=== PATIENT | female | born 1935 | race Caucasian/White ===

== ENCOUNTER → 2017-05-26 | Outpatient (CLI) | payer MEDICARE ==
[~2017-05-26] MED LIST: ACET325T14 PO; ALBU18HF INH; AMLO5TAB2 PO; DOCU-30 PO; HEPA500024 SQ; INSU100C5 SQ-INSULIN; INSU100V13 SQ; LANS1COM PO; LISI-167 PO; MAGN400T7 PO; METF500T27 PO; METO25TA35 PO; OMEP10CA2 PO; OXYC-302 PO; PANT40TA5 PO; POTA10TA11 PO; PRAV10TA2 PO; PRAV20TA2 PO; PRED10TA PO; SPIR25TA3 PO
== END | disposition home or self-care (01) ==
LOC: CVU 12:16
PROVIDERS: ATTEND Surgery
DX: I65.23 Occlusion and stenosis of bilateral carotid arteries (principal); I25.10 Atherosclerotic heart disease of native coronary artery without angina pectoris; I10 Essential (primary) hypertension; E11.9 Type 2 diabetes mellitus without complications; I48.91 Unspecified atrial fibrillation; I77.1 Stricture of artery; F17.200 Nicotine dependence, unspecified, uncomplicated; E78.5 Hyperlipidemia, unspecified; Z79.4 Long term (current) use of insulin
CPT/HCPCS: 93880; 93922; 93925

== ENCOUNTER 2017-09-25 12:58 | Emergency (ER) | payer MEDICARE, MEDICAID ==
[~2017-09-25] VITALS: Ht 157.5 cm; Wt 51.8 kg
[~2017-09-25 12:58] MED LIST changes: +DOCU-131 PO; -DOCU-30 PO; -LANS1COM PO; +LANS1COM3 PO
[2017-09-25 14:26] LABS: BASOPHILS # (AUTO) 0.01 x10^3/uL (0-0.1); BASOPHILS % (AUTO) 0 % (0-1); EOSINOPHILS # (AUTO) 0.11 x10^3/uL (0-0.4); EOSINOPHILS % (AUTO) 2 % (1-7); LYMPHOCYTES # (AUTO) 1.15 x10^3/uL (1-3.4); LYMPHOCYTES % (AUTO) 15 % (22-44); MD NO; MEAN CORPUSCULAR HEMOGLOBIN 29.1 pg (27.0-34.8); MEAN CORPUSCULAR HGB CONC 32.9 g/dL (32.4-35.8); MEAN CORPUSCULAR VOLUME 88.7 fL (80-100); MEAN PLATELET VOLUME 8.5 fL (7.4-10.4); MONOCYTES # (AUTO) 0.43 x10^3/uL (0.2-0.8); MONOCYTES % (AUTO) 6 % (2-9); NEUTROPHILS # (AUTO) 5.91 x10^3/uL (1.8-6.8); NEUTROPHILS % (AUTO) 78 % (42-75); PLATELET COUNT 177 x10^3/uL (130-400); RED BLOOD COUNT 4.31 x10^6/uL (3.82-5.3); RED CELL DISTRIBUTION WIDTH 17.9 % (9.6-15.2)
[2017-09-25 14:28] LABS: INTERNATIONAL NORMALIZED RATIO 1.28 (0.93-1.1); PROTHROMBIN TIME 13.2 Seconds (9.6-11.5)
[2017-09-25 14:34] LABS: ALANINE AMINOTRANSFERASE 20 U/L (12-78); ALBUMIN 3.1 g/dL (3.4-5.0); ANION GAP 10 mmol/L (5-15); CALCIUM 9.1 mg/dL (8.5-10.1); CHLORIDE 105 mmol/L (98-107); CREATININE 2.49 mg/dL (0.55-1.02)
[2017-09-25 14:36] LABS: ALKALINE PHOSPHATASE 139 U/L (45-117); BILIRUBIN,TOTAL 0.3 mg/dL (0.2-1.0); TOTAL PROTEIN 7.3 g/dL (6.4-8.2)
[2017-09-25] MEDS ORDERED: INSU100V13 SQ-INSULIN (15:32)
[2017-09-25 15:47] LABS: CULTURE INDICATED? YES; MICROSCOPIC INDICATED
[2017-09-25 16:35] VITALS: BP 183/88
[2017-12-19] MEDS ORDERED: APIX5TAB PO (13:36)
[2017-12-19] MEDS ORDERED: LINA5TAB PO (13:36)
== END 2017-09-25 16:38 | disposition home or self-care (01) ==
LOC: ED 16:32
DX: G45.9 Transient cerebral ischemic attack, unspecified (principal); N30.00 Acute cystitis without hematuria; J44.9 Chronic obstructive pulmonary disease, unspecified; I11.0 Hypertensive heart disease with heart failure; I50.9 Heart failure, unspecified; E11.9 Type 2 diabetes mellitus without complications; Z90.710 Acquired absence of both cervix and uterus
CPT/HCPCS: 36415; 70551; 80053; 81001; 85025; 85610; 85730; 87077; 87086; 87186; 93005; 99285

== ENCOUNTER 2017-10-13 13:23 | Inpatient (IN) | payer MEDICARE, MEDICAID ==
[~2017-10-13] VITALS: Ht 152.4 cm; Wt 50.7 kg
[~2017-10-13 13:23] MED LIST changes: +INSU100V13 SQ-INSULIN
[2017-10-13 14:33] LABS: HEMATOCRIT 35.9 % (34.6-47.8); HEMOGLOBIN 11.9 g/dL (11.7-16.4); WHITE BLOOD COUNT 6.6 x10^3/uL (3.4-10)
[2017-10-13 14:40] LABS: ASPARTATE AMINO TRANSFERASE 12 U/L (15-37); BLOOD UREA NITROGEN 28 mg/dL (7-18)
[2017-10-13 15:13] LABS: PATH.CAST-FLAG NOT PRESENT; SPERM-FLAG NOT PRESENT; SRC-FLAG NOT PRESENT; XTAL-FLAG NOT PRESENT; YLC-FLAG NOT PRESENT
[2017-10-13] MEDS ORDERED: SODIUM CHLORIDE 0.9% 1,000ML IVBOLUS ONE (15:30)
[2017-10-13] MEDS ORDERED: ASPIRIN 81 MG TABLET CHEW PO ONE (16:00)
[2017-10-13] MEDS ORDERED: ENALAPRILAT 1.25 MG/ML, 2ML IV ONE (16:00)
[2017-10-13] MEDS ORDERED: ASPIRIN 81 MG TABLET CHEW ONE (16:26)
[2017-10-13] MEDS ORDERED: ENALAPRILAT 1.25 MG/ML, 2ML ONE (16:26)
[2017-10-13] MEDS: SODIUM CHLORIDE 0.9% 1,000 ML IV SCH (16:58)
[2017-10-13] MEDS ORDERED: LABETALOL 5MG/ML, 20ML IVPush PRN (18:00)
[2017-10-13] MEDS ORDERED: GLUCAGON 1 MG IM PRN (18:00)
[2017-10-13] MEDS ORDERED: DEXTROSE 4 GM TAB.CHEW PO PRN (18:00)
[2017-10-13] MEDS ORDERED: DEXTROSE 50%, 50ML SYRINGE IVPush PRN (18:00)
[2017-10-13 18:08] VITALS: BP 210/85
[2017-10-13 18:24] VITALS: BP 201/80
[2017-10-13] MEDS: INSULIN ASPART 100 UNITS/ML, PEN SQ-INSULIN SCH ×2 (18:30→22:18)
[2017-10-13] MEDS: hydrALAzine 20 MG/ML, 1ML IVPush PRN (18:30)
[2017-10-13] MEDS: SODIUM CHLORIDE FLUSH 10ML SYR IVF SCH (19:18)
[2017-10-13 20:00] VITALS: BP 179/84
[2017-10-13] MEDS: METOPROLOL TARTRATE 25 MG TABLET PO SCH (22:18)
[2017-10-13] MEDS: PRAVASTATIN 20 MG TABLET PO SCH (22:19)
[2017-10-13] MEDS ORDERED: APIXABAN MC SCH (23:30)
[2017-10-13] MEDS: APIXABAN MC SCH (23:30)
[2017-10-14] VITALS (7 sets, daily range): BP systolic 146–186; BP diastolic 63–94
[2017-10-14] MEDS: hydrALAzine 20 MG/ML, 1ML IVPush PRN (00:47)
[2017-10-14 05:47] LABS: HEMATOCRIT 35.1 % (34.6-47.8); HEMOGLOBIN 11.8 g/dL (11.7-16.4)
[2017-10-14 06:07] LABS: BLOOD UREA NITROGEN 29 mg/dL (7-18)
[2017-10-14] MEDS: APIXABAN MC SCH ×2 (08:12→15:34)
[2017-10-14] MEDS: NICOTINE 14MG/24 HR PATCH.TD24 TD SCH (08:20)
[2017-10-14] MEDS: AMLODIPINE 5 MG TABLET PO SCH (08:20)
[2017-10-14] MEDS: METOPROLOL TARTRATE 25 MG TABLET PO SCH ×2 (08:20→20:55)
[2017-10-14] MEDS: INSULIN ASPART 100 UNITS/ML, PEN SQ-INSULIN SCH ×4 (08:22→20:55)
[2017-10-14] MEDS: SODIUM CHLORIDE FLUSH 10ML SYR IVF SCH (08:23)
[2017-10-14] MEDS ORDERED: APIXABAN 5 MG TABLET PO SCH (09:00)
[2017-10-14] MEDS ORDERED: APIXABAN 2.5 MG TABLET PO SCH (09:00)
[2017-10-14] MEDS: APIXABAN 2.5 MG TABLET PO SCH ×2 (10:23→20:59)
[2017-10-14] MEDS: SODIUM CHLORIDE 0.9% 1,000 ML IV SCH (10:23)
[2017-10-14] MEDS ORDERED: APIX2.5T PO (11:25)
[2017-10-14] MEDS: PRAVASTATIN 20 MG TABLET PO SCH (20:54)
[2017-10-15 00:17] VITALS: BP 176/78
[2017-10-15 03:37] VITALS: BP 169/82
[2017-10-15 07:59] VITALS: BP 186/78
[2017-10-15] MEDS: INSULIN ASPART 100 UNITS/ML, PEN SQ-INSULIN SCH (08:23)
[2017-10-15] MEDS: AMLODIPINE 5 MG TABLET PO SCH (08:24)
[2017-10-15] MEDS: METOPROLOL TARTRATE 25 MG TABLET PO SCH (08:24)
[2017-10-15] MEDS: APIXABAN 2.5 MG TABLET PO SCH (08:24)
[2017-10-15] MEDS: NICOTINE 14MG/24 HR PATCH.TD24 TD SCH (08:27)
== END 2017-10-15 11:19 | disposition home or self-care (01) | DRG 69 ==
LOC: ED 16:09 → EDIP 16:10 → ED 16:14 → 4EST 17:27
PROVIDERS: ADMIT Family Medicine; ATTEND Family Medicine
DX: G45.9 Transient cerebral ischemic attack, unspecified (principal); E11.22 Type 2 diabetes mellitus with diabetic chronic kidney disease; I48.91 Unspecified atrial fibrillation; E11.65 Type 2 diabetes mellitus with hyperglycemia; I13.0 Hypertensive heart and chronic kidney disease with heart failure and stage 1 through stage 4 chronic kidney disease, or unspecified chronic kidney disease; I50.9 Heart failure, unspecified; E87.1 Hypo-osmolality and hyponatremia; R47.01 Aphasia; I08.3 Combined rheumatic disorders of mitral, aortic and tricuspid valves; F17.200 Nicotine dependence, unspecified, uncomplicated; I16.0 Hypertensive urgency; J44.9 Chronic obstructive pulmonary disease, unspecified; N18.9 Chronic kidney disease, unspecified; Z86.73 Personal history of transient ischemic attack (TIA), and cerebral infarction without residual deficits; Z86.718 Personal history of other venous thrombosis and embolism; Z79.4 Long term (current) use of insulin; Z79.01 Long term (current) use of anticoagulants; I25.2 Old myocardial infarction; Z88.5 Allergy status to narcotic agent; Z88.8 Allergy status to other drugs, medicaments and biological substances; Z91.041 Radiographic dye allergy status; Z87.440 Personal history of urinary (tract) infections
CPT/HCPCS: 36415; 70450; 80048; 80053; 80061; 81001; 82962; 83735; 84100; 84443; 85025; 85610; 85730; 93005; 93306; 93880; 94640; 96374; J1815; 92523-GN; J0360; J7030

== ENCOUNTER → 2017-12-18 | Outpatient (CLI) | payer MEDICARE, MEDICAID ==
[~2017-12-18] MED LIST changes: +APIX2.5T PO; +APIX5TAB PO; +LINA5TAB PO
[2017-12-18 15:30] LABS: BASOPHILS # (AUTO) 0.02 x10^3/uL (0-0.1); BASOPHILS % (AUTO) 0 % (0-1); EOSINOPHILS # (AUTO) 0.12 x10^3/uL (0-0.4); EOSINOPHILS % (AUTO) 1 % (1-7); LYMPHOCYTES # (AUTO) 1.06 x10^3/uL (1-3.4); LYMPHOCYTES % (AUTO) 10 % (22-44); MD NO; MEAN CORPUSCULAR HEMOGLOBIN 29.1 pg (27.0-34.8); MEAN CORPUSCULAR HGB CONC 32.4 g/dL (32.4-35.8); MEAN CORPUSCULAR VOLUME 89.9 fL (80-100); MEAN PLATELET VOLUME 8.1 fL (7.4-10.4); MONOCYTES # (AUTO) 0.67 x10^3/uL (0.2-0.8); MONOCYTES % (AUTO) 7 % (2-9); NEUTROPHILS # (AUTO) 8.33 x10^3/uL (1.8-6.8); NEUTROPHILS % (AUTO) 82 % (42-75); PLATELET COUNT 302 x10^3/uL (130-400); RED BLOOD COUNT 3.62 x10^6/uL (3.82-5.3); RED CELL DISTRIBUTION WIDTH 17.9 % (9.6-15.2)
[2017-12-18 15:38] LABS: ALANINE AMINOTRANSFERASE 19 U/L (12-78); ALBUMIN 2.2 g/dL (3.4-5.0); ANION GAP 14 mmol/L (5-15); CHLORIDE 115 mmol/L (98-107)
[2017-12-18 15:40] LABS: ALKALINE PHOSPHATASE 278 U/L (45-117); BILIRUBIN,TOTAL 0.4 mg/dL (0.2-1.0); TOTAL PROTEIN 7.1 g/dL (6.4-8.2)
== END | disposition home or self-care (01) ==
LOC: STAR 14:12
PROVIDERS: ATTEND Surgery
DX: Z01.818 Encounter for other preprocedural examination (principal); I65.21 Occlusion and stenosis of right carotid artery; I48.91 Unspecified atrial fibrillation
CPT/HCPCS: 36415; 80053; 85025; 93005

== ENCOUNTER 2017-12-25 16:33 | Inpatient (IN) | payer MEDICARE, MEDICAID ==
[~2017-12-25] VITALS: Ht 154.9 cm; Wt 58.3 kg
[2017-12-25 18:05] LABS: BASOPHILS # (AUTO) 0.01 x10^3/uL (0-0.1); BASOPHILS % (AUTO) 0 % (0-1); EOSINOPHILS # (AUTO) 0.27 x10^3/uL (0-0.4); EOSINOPHILS % (AUTO) 2 % (1-7); LYMPHOCYTES # (AUTO) 0.74 x10^3/uL (1-3.4); LYMPHOCYTES % (AUTO) 5 % (22-44); MD NO; MEAN CORPUSCULAR HEMOGLOBIN 29.8 pg (27.0-34.8); MEAN CORPUSCULAR HGB CONC 32.4 g/dL (32.4-35.8); MEAN CORPUSCULAR VOLUME 92.1 fL (80-100); MEAN PLATELET VOLUME 8.7 fL (7.4-10.4); MONOCYTES # (AUTO) 0.54 x10^3/uL (0.2-0.8); MONOCYTES % (AUTO) 4 % (2-9); NEUTROPHILS # (AUTO) 13.15 x10^3/uL (1.8-6.8); NEUTROPHILS % (AUTO) 89 % (42-75); PLATELET COUNT 161 x10^3/uL (130-400); RED BLOOD COUNT 3.39 x10^6/uL (3.82-5.3); RED CELL DISTRIBUTION WIDTH 19.9 % (9.6-15.2)
[2017-12-25 18:19] LABS: ALANINE AMINOTRANSFERASE 7 U/L (12-78); ANION GAP 13 mmol/L (5-15); CALCIUM 7.8 mg/dL (8.5-10.1); CHLORIDE 108 mmol/L (98-107); CREATININE 4.39 mg/dL (0.55-1.02)
[2017-12-25 18:22] LABS: ALKALINE PHOSPHATASE 205 U/L (45-117); BILIRUBIN,TOTAL 0.3 mg/dL (0.2-1.0); TOTAL PROTEIN 6.1 g/dL (6.4-8.2)
[2017-12-25] MEDS ORDERED: D5%-0.45% NACL 1,000 ML IV SCH ×2 (18:30→21:04)
[2017-12-25] MEDS ORDERED: VANCOMYCIN PER PHARMACY MC ONE (18:30)
[2017-12-25] MEDS ORDERED: PIPERACILLIN/TAZO/PMX 4.5GM 100 ML IVPB ONE (18:30)
[2017-12-25] MEDS ORDERED: PHARMACOKINETIC CONSULTATION MC ONE ×2 (18:30→22:00)
[2017-12-25] MEDS ORDERED: SODIUM CHLORIDE 0.9% 1,000ML IVBOLUS ONE (18:30)
[2017-12-25] MEDS ORDERED: VANCOMYCIN PMX 1GM/200ML 200 ML IV ONE (19:00)
[2017-12-25 19:27] LABS: MICROSCOPIC INDICATED
[2017-12-25 19:35] LABS: CULTURE INDICATED? YES
[2017-12-25] MEDS ORDERED: SODIUM CHLORIDE 0.9% 1,000 ML IV SCH (21:04)
[2017-12-25] MEDS ORDERED: ONDANSETRON ODT 4 MG PO PRN (21:30)
[2017-12-25] MEDS ORDERED: GLUCAGON 1 MG IM PRN (21:30)
[2017-12-25] MEDS ORDERED: ACETAMINOPHEN 325 MG TABLET PO PRN (21:30)
[2017-12-25] MEDS ORDERED: VANCOMYCIN PER PHARMACY MC PRN (21:30)
[2017-12-25] MEDS ORDERED: DEXTROSE 50%, 50ML SYRINGE IVPush PRN (21:30)
[2017-12-25] MEDS ORDERED: DEXTROSE 4 GM TAB.CHEW PO PRN (21:30)
[2017-12-25] MEDS ORDERED: LABETALOL 5MG/ML, 20ML IVPush PRN (21:30)
[2017-12-25] MEDS ORDERED: POLYETHYLENE GLYCOL 17 GM PACKET PO PRN (21:30)
[2017-12-25] MEDS ORDERED: DOCUSATE 100 MG CAPSULE PO PRN (21:30)
[2017-12-25 21:32] VITALS: BP 161/76
[2017-12-25 21:40] VITALS: BP 161/76
[2017-12-25] MEDS ORDERED: PHARMACOKINETIC MONITORING MC PRN (22:00)
[2017-12-25 22:06] LABS: INTERNATIONAL NORMALIZED RATIO 1.23 (0.93-1.1); PROTHROMBIN TIME 12.6 Seconds (9.6-11.5)
[2017-12-25] MEDS ORDERED: ALBUTEROL/IPRATROPIUM 2.5MG/0.5MG, 3 ML NPPB PRN (23:30)
[2017-12-25] MEDS ORDERED: WARFARIN 5 MG TABLET PO-COUM ONE (23:45)
[2017-12-26] MEDS: INSULIN LISPRO 100 UNITS/ML, PEN SQ-INSULIN SCH ×5 (00:24→20:51)
[2017-12-26] MEDS: SODIUM CHLORIDE 0.9% IV SCH ×2 (00:31→21:07)
[2017-12-26] MEDS: CEFTAZIDIME IV SCH ×2 (00:31→21:07)
[2017-12-26 02:25] VITALS: BP 145/63
[2017-12-26 05:13] LABS: INTERNATIONAL NORMALIZED RATIO 1.31 (0.93-1.1); PROTHROMBIN TIME 13.4 Seconds (9.6-11.5)
[2017-12-26 05:20] LABS: ALBUMIN 1.7 g/dL (3.4-5.0); ANION GAP 15 mmol/L (5-15); CALCIUM 7.2 mg/dL (8.5-10.1); CHLORIDE 109 mmol/L (98-107)
[2017-12-26 05:21] LABS: BASOPHILS % (AUTO) 0 % (0-1); EOSINOPHILS % (AUTO) 2 % (1-7); LYMPHOCYTES # (AUTO) 0.52 x10^3/uL (1-3.4); LYMPHOCYTES % (AUTO) 6 % (22-44); MD NO; MEAN CORPUSCULAR HEMOGLOBIN 29.8 pg (27.0-34.8); MEAN CORPUSCULAR HGB CONC 33.1 g/dL (32.4-35.8); MEAN CORPUSCULAR VOLUME 90.2 fL (80-100); MEAN PLATELET VOLUME 8.9 fL (7.4-10.4); MONOCYTES # (AUTO) 0.32 x10^3/uL (0.2-0.8); MONOCYTES % (AUTO) 4 % (2-9); NEUTROPHILS # (AUTO) 7.81 x10^3/uL (1.8-6.8); NEUTROPHILS % (AUTO) 88 % (42-75); PLATELET COUNT 147 x10^3/uL (130-400); RED BLOOD COUNT 3.03 x10^6/uL (3.82-5.3)
[2017-12-26 05:25] LABS: ALANINE AMINOTRANSFERASE 9 U/L (12-78); ALKALINE PHOSPHATASE 387 U/L (45-117); BILIRUBIN,TOTAL 0.5 mg/dL (0.2-1.0); CREATININE 4.19 mg/dL (0.55-1.02); TOTAL PROTEIN 5.4 g/dL (6.4-8.2)
[2017-12-26 05:40] LABS: HEMOGLOBIN A1C 8.1 % (4.2-6.3)
[2017-12-26 06:29] VITALS: BP 148/69
[2017-12-26] MEDS: PANTOPROZOLE 40MG TABLET PO SCH ×3 (07:29→16:50)
[2017-12-26] MEDS: SODIUM CHLORIDE FLUSH 10ML SYR IVF SCH ×2 (09:00→21:08)
[2017-12-26 09:24] LABS: BILIRUBIN, DIRECT 0.3 mg/dL (0.1-0.2)
[2017-12-26] MEDS ORDERED: HEPARIN 5,000 UNITS/ML, 1ML SQ SCH (09:30)
[2017-12-26] MEDS: METOPROLOL TARTRATE 25 MG TABLET PO SCH ×2 (10:31→21:07)
[2017-12-26 13:03] VITALS: BP 118/74
[2017-12-26] MEDS: APIXABAN 2.5 MG TABLET PO SCH ×2 (15:21→21:05)
[2017-12-26] MEDS: SODIUM BICARBONATE 650 MG TABLET PO SCH ×2 (16:50→21:07)
[2017-12-26] MEDS ORDERED: WARFARIN 5 MG TABLET PO-COUM SCH (18:00)
[2017-12-26 18:45] VITALS: BP 141/76
[2017-12-26] MEDS ORDERED: APIXABAN 2.5 MG TABLET PO SCH (21:00)
[2017-12-26] MEDS ORDERED: SODIUM CHLORIDE 0.9% 1,000 ML IV SCH (21:04)
[2017-12-26] MEDS: PRAVASTATIN 20 MG TABLET PO SCH (21:05)
[2017-12-27 02:08] VITALS: BP 144/71
[2017-12-27 05:01] LABS: BASOPHILS # (AUTO) 0.04 x10^3/uL (0-0.1); BASOPHILS % (AUTO) 1 % (0-1); EOSINOPHILS # (AUTO) 0.22 x10^3/uL (0-0.4); EOSINOPHILS % (AUTO) 3 % (1-7); LYMPHOCYTES # (AUTO) 0.47 x10^3/uL (1-3.4); LYMPHOCYTES % (AUTO) 7 % (22-44); MD NO; MEAN CORPUSCULAR HGB CONC 33.2 g/dL (32.4-35.8); MEAN CORPUSCULAR VOLUME 90.3 fL (80-100); MEAN PLATELET VOLUME 8.9 fL (7.4-10.4); MONOCYTES # (AUTO) 0.15 x10^3/uL (0.2-0.8); MONOCYTES % (AUTO) 2 % (2-9); NEUTROPHILS # (AUTO) 5.77 x10^3/uL (1.8-6.8); NEUTROPHILS % (AUTO) 87 % (42-75); PLATELET COUNT 178 x10^3/uL (130-400); RED BLOOD COUNT 3.19 x10^6/uL (3.82-5.3); RED CELL DISTRIBUTION WIDTH 19.2 % (9.6-15.2)
[2017-12-27 05:02] LABS: ANION GAP 15 mmol/L (5-15); CALCIUM 7.1 mg/dL (8.5-10.1); CHLORIDE 113 mmol/L (98-107); CREATININE 4.69 mg/dL (0.55-1.02); IRON LEVEL 34 mcg/dL (50-170)
[2017-12-27 05:05] LABS: % IRON SATURATION 22 % (20-55); TOTAL IRON BINDING CAPACITY 158 mcg/dL (250-450); VANCOMYCIN,RANDOM 12.3 mcg/mL
[2017-12-27 05:28] LABS: INTERNATIONAL NORMALIZED RATIO 7.99 (0.93-1.1)
[2017-12-27 06:37] VITALS: BP 148/78
[2017-12-27] MEDS: PANTOPROZOLE 40MG TABLET PO SCH ×3 (07:19→17:18)
[2017-12-27] MEDS: INSULIN LISPRO 100 UNITS/ML, PEN SQ-INSULIN SCH ×4 (07:29→21:00)
[2017-12-27] MEDS: SODIUM CHLORIDE FLUSH 10ML SYR IVF SCH ×2 (08:50→21:23)
[2017-12-27] MEDS: METOPROLOL TARTRATE 25 MG TABLET PO SCH ×2 (08:55→21:19)
[2017-12-27] MEDS: SODIUM BICARBONATE 650 MG TABLET PO SCH ×2 (08:55→21:19)
[2017-12-27] MEDS ORDERED: VANCOMYCIN PMX 1GM/200ML 200 ML IVPB ONE (10:00)
[2017-12-27] MEDS: APIXABAN 2.5 MG TABLET PO SCH (10:47)
[2017-12-27 13:03] LABS: PROTHROMBIN TIME 139.9 Seconds (9.6-11.5)
[2017-12-27 13:04] LABS: INTERNATIONAL NORMALIZED RATIO > 12.00 (0.93-1.1)
[2017-12-27 13:18] VITALS: BP 143/72
[2017-12-27] MEDS ORDERED: PHYTONADIONE 5 MG TABLET PO ONE (13:30)
[2017-12-27] MEDS: SODIUM BICARBONATE 8.4% 75 MEQ in SODIUM CHLORIDE 0.45% 1,000 ML IV SCH (14:08)
[2017-12-27 16:05] LABS: PROTHROMBIN TIME > 148.7 Seconds (9.6-11.5)
[2017-12-27 16:06] LABS: INTERNATIONAL NORMALIZED RATIO > 12.00 (0.93-1.1)
[2017-12-27] MEDS: CALCIUM ACETATE 667 MG CAPSULE PO SCH ×2 (17:18→21:19)
[2017-12-27 20:58] VITALS: BP 161/80
[2017-12-27] MEDS: CEFTAZIDIME IV SCH (21:17)
[2017-12-27] MEDS: SODIUM CHLORIDE 0.9% IV SCH (21:17)
[2017-12-27] MEDS: PRAVASTATIN 20 MG TABLET PO SCH (21:19)
[2017-12-28 01:01] VITALS: BP 152/77
[2017-12-28] MEDS: SODIUM BICARBONATE 8.4% 75 MEQ in SODIUM CHLORIDE 0.45% 1,000 ML IV SCH ×2 (01:37→18:33)
[2017-12-28 05:00] LABS: BASOPHILS # (AUTO) 0.01 x10^3/uL (0-0.1); BASOPHILS % (AUTO) 0 % (0-1); EOSINOPHILS # (AUTO) 0.19 x10^3/uL (0-0.4); EOSINOPHILS % (AUTO) 3 % (1-7); LYMPHOCYTES # (AUTO) 0.58 x10^3/uL (1-3.4); LYMPHOCYTES % (AUTO) 8 % (22-44); MD NO; MEAN CORPUSCULAR HEMOGLOBIN 30.1 pg (27.0-34.8); MEAN CORPUSCULAR HGB CONC 33.2 g/dL (32.4-35.8); MEAN CORPUSCULAR VOLUME 90.6 fL (80-100); MONOCYTES # (AUTO) 0.09 x10^3/uL (0.2-0.8); MONOCYTES % (AUTO) 1 % (2-9); NEUTROPHILS # (AUTO) 6.72 x10^3/uL (1.8-6.8); NEUTROPHILS % (AUTO) 89 % (42-75); PLATELET COUNT 168 x10^3/uL (130-400)
[2017-12-28 05:06] LABS: INTERNATIONAL NORMALIZED RATIO 4.91 (0.93-1.1)
[2017-12-28 05:08] LABS: ANION GAP 13 mmol/L (5-15); CALCIUM 6.9 mg/dL (8.5-10.1); CHLORIDE 111 mmol/L (98-107); CREATININE 4.47 mg/dL (0.55-1.02)
[2017-12-28 06:30] VITALS: BP 156/79
[2017-12-28] MEDS: INSULIN LISPRO 100 UNITS/ML, PEN SQ-INSULIN SCH ×4 (07:00→21:40)
[2017-12-28] MEDS: SODIUM CHLORIDE FLUSH 10ML SYR IVF SCH ×2 (09:00→21:35)
[2017-12-28] MEDS: CALCIUM ACETATE 667 MG CAPSULE PO SCH ×3 (09:56→21:39)
[2017-12-28] MEDS: SODIUM BICARBONATE 650 MG TABLET PO SCH ×2 (09:56→21:39)
[2017-12-28] MEDS: PANTOPROZOLE 40MG TABLET PO SCH ×3 (09:56→16:03)
[2017-12-28] MEDS: METOPROLOL TARTRATE 25 MG TABLET PO SCH ×2 (09:57→21:39)
[2017-12-28 15:00] VITALS: BP 146/66
[2017-12-28 19:32] VITALS: BP 139/67
[2017-12-28] MEDS: SODIUM CHLORIDE 0.9% IV SCH (21:36)
[2017-12-28] MEDS: CEFTAZIDIME IV SCH (21:36)
[2017-12-28] MEDS: PRAVASTATIN 20 MG TABLET PO SCH (21:39)
[2017-12-29 01:29] VITALS: BP 150/60
[2017-12-29 05:37] LABS: INTERNATIONAL NORMALIZED RATIO 3.26 (0.93-1.1); PROTHROMBIN TIME 32.8 Seconds (9.6-11.5)
[2017-12-29 06:29] VITALS: BP 169/71
[2017-12-29] MEDS: SODIUM BICARBONATE 8.4% 75 MEQ in SODIUM CHLORIDE 0.45% 1,000 ML IV SCH (06:44)
[2017-12-29 08:15] LABS: MEAN CORPUSCULAR HEMOGLOBIN 29.9 pg (27.0-34.8); MEAN CORPUSCULAR HGB CONC 32.9 g/dL (32.4-35.8); MEAN CORPUSCULAR VOLUME 90.9 fL (80-100); MEAN PLATELET VOLUME 8.8 fL (7.4-10.4); PLATELET COUNT 156 x10^3/uL (130-400); RED BLOOD COUNT 3.28 x10^6/uL (3.82-5.3); RED CELL DISTRIBUTION WIDTH 19.1 % (9.6-15.2)
[2017-12-29 08:22] LABS: ANION GAP 14 mmol/L (5-15); CALCIUM 7.6 mg/dL (8.5-10.1); CHLORIDE 106 mmol/L (98-107); CREATININE 4.03 mg/dL (0.55-1.02)
[2017-12-29 08:32] LABS: BASOPHILS # (AUTO) 0.01 x10^3/uL (0-0.1); BASOPHILS % (AUTO) 0 % (0-1); EOSINOPHILS % (AUTO) 3 % (1-7); LYMPHOCYTES # (AUTO) 0.48 x10^3/uL (1-3.4); LYMPHOCYTES % (AUTO) 4 % (22-44); MD MORPH REVIEW ONLY; MONOCYTES # (AUTO) 0.13 x10^3/uL (0.2-0.8); MONOCYTES % (AUTO) 1 % (2-9); NEUTROPHILS # (AUTO) 9.79 x10^3/uL (1.8-6.8); NEUTROPHILS % (AUTO) 91 % (42-75)
[2017-12-29 08:34] LABS: ANISOCYTOSIS 1+; POLYCHROMASIA 1+
[2017-12-29 08:36] LABS: <PLATELET ESTIMATE> ADEQUATE; <PLT MORPHOLOGY> NORMAL PLT MORPH
[2017-12-29] MEDS: CALCIUM ACETATE 667 MG CAPSULE PO SCH (08:50)
[2017-12-29] MEDS: SODIUM BICARBONATE 650 MG TABLET PO SCH (08:50)
[2017-12-29] MEDS: PANTOPROZOLE 40MG TABLET PO SCH ×2 (08:50→11:00)
[2017-12-29] MEDS: SODIUM CHLORIDE FLUSH 10ML SYR IVF SCH (08:51)
[2017-12-29] MEDS: INSULIN LISPRO 100 UNITS/ML, PEN SQ-INSULIN SCH ×2 (08:52→11:00)
[2017-12-29 13:15] VITALS: BP 137/66
[2017-12-29] MEDS ORDERED: METOPROLOL TARTRATE 50 MG TABLET PO SCH (18:00)
[2017-12-29 20:00] VITALS: BP 149/76
[2017-12-29] MEDS: OXYcodone/APAP 5/325MG TABLET PO PRN (21:18)
[2017-12-30] MEDS: OXYcodone/APAP 5/325MG TABLET PO PRN (06:25)
== END 2017-12-30 18:30 | DRG 871 ==
LOC: ED 18:08 → EDIP 19:34 → 4EST 21:11
PROVIDERS: ADMIT Family Medicine; ATTEND Family Medicine
PROC: 0T9B70Z Drainage of Bladder with Drainage Device, Via Natural or Artificial Opening (ICD-10-PCS; principal; 2017-12-25)
DX: A41.9 Sepsis, unspecified organism (principal); N17.0 Acute kidney failure with tubular necrosis; J15.9 Unspecified bacterial pneumonia; E46 Unspecified protein-calorie malnutrition; N18.4 Chronic kidney disease, stage 4 (severe); E11.22 Type 2 diabetes mellitus with diabetic chronic kidney disease; E11.51 Type 2 diabetes mellitus with diabetic peripheral angiopathy without gangrene; E11.649 Type 2 diabetes mellitus with hypoglycemia without coma; E83.51 Hypocalcemia; N25.0 Renal osteodystrophy; N39.0 Urinary tract infection, site not specified; I13.0 Hypertensive heart and chronic kidney disease with heart failure and stage 1 through stage 4 chronic kidney disease, or unspecified chronic kidney disease; J44.0 Chronic obstructive pulmonary disease with (acute) lower respiratory infection; I48.91 Unspecified atrial fibrillation; Y95 Nosocomial condition; D63.8 Anemia in other chronic diseases classified elsewhere; E78.5 Hyperlipidemia, unspecified; F17.210 Nicotine dependence, cigarettes, uncomplicated; I25.10 Atherosclerotic heart disease of native coronary artery without angina pectoris; I50.9 Heart failure, unspecified; I05.0 Rheumatic mitral stenosis; Z51.5 Encounter for palliative care; Z66 Do not resuscitate; Z79.01 Long term (current) use of anticoagulants; Z79.4 Long term (current) use of insulin; Z83.3 Family history of diabetes mellitus; I25.2 Old myocardial infarction; Z86.718 Personal history of other venous thrombosis and embolism; Z86.73 Personal history of transient ischemic attack (TIA), and cerebral infarction without residual deficits; Z90.710 Acquired absence of both cervix and uterus; Z99.81 Dependence on supplemental oxygen; Z68.24 Body mass index [BMI] 24.0-24.9, adult; Z88.5 Allergy status to narcotic agent; Z88.8 Allergy status to other drugs, medicaments and biological substances; Z91.041 Radiographic dye allergy status
CPT/HCPCS: 36415; 71045; 76700; 80048; 80053; 80202; 81001; 82248; 82306; 82962; 83036; 83540; 83550; 83605; 83690; 83735; 83930; 83970; 84100; 85025; 85610; 87040; 87086; 96365; 96368; J0713; J1644; J2543; J3370; J7620; J1815; J7030; Q0177